=== PATIENT | female | born 1975 | race Two or more races ===

== ENCOUNTER 2020-08-30 16:21 | Outpatient (REF) | payer OTHER, SELFPAY ==
[2020-08-31 04:35] LABS: HBS Num1 17.74 mIU/mL (0-7.99); HBc Num1 0.13 S/CO (0.00-0.79); HBsAGNum1 0.28 S/CO (0.00-0.99); Hepatitis B Core Antibody Nonreactive (Nonreactive); Hepatitis B Surface Antigen Negative (Negative); ~Hepatitis B Surface Antibody REACTIVE (Nonreactive)
== END 2020-08-30 16:22 | disposition home or self-care (01) ==
LOC: HO.LAB 16:21
PROVIDERS: PCP Internal Medicine; Visit Provider Internal Medicine
DX: Z11.59 Encounter for screening for other viral diseases (principal)
CPT/HCPCS: 86704; 86706; 87340

== ENCOUNTER 2020-10-31 11:08 | Outpatient (REF) | payer OTHER, SELFPAY ==
[2020-10-31 12:09] LABS: MANUAL DIFF FLAG NO
[2020-10-31 12:14] LABS: Basophils Absolute Auto 0.1 X10*3/uL (0.0-0.2); Basophils Percent Auto 0.7 % (0-2); Eosinophils Absolute Auto 0.1 X10*3/uL (0.0-0.4); Eosinophils Percent Auto 1.7 % (0-4); Hematocrit 39.4 % (37-47); Hemoglobin 12.3 g/dl (12.0-16.0); Imm Gran Abs Auto 0.05 X10*3/uL (0.00-0.03); Imm Gran Pct Auto 0.7 % (0.0-0.4); Lymphocytes Absolute Auto 2.2 X10*3/uL (1.2-4.9); Lymphocytes Percent Auto 29.9 % (20-40); Mean Corpuscular HGB Conc 31.2 g/dl (31.0-35.0); Mean Corpuscular Hemoglobin 27.3 pg (27.0-33.0); Mean Corpuscular Volume 87.6 fL (80-98); Mean Platelet Volume 10.8 fL (9.4-12.3); Monocytes Absolute Auto 0.5 X10*3/uL (0.1-1.2); Neutrophils Absolute Auto 4.3 X10*3/uL (2.0-8.3); Platelet Count 344 X10*3/uL (160-400); Red Cell Distribution Width 13.6 % (11.0-16.0); White Blood Count 7.2 X10*3/uL (4.8-10.8)
[2020-10-31 12:21] LABS: Estimated Average Glucose 117 mg/dL; Hemoglobin A1c % 5.7 %
[2020-10-31 13:00] LABS: Alanine Aminotransferase 16 U/L (0-31); Albumin Level 3.9 g/dL (3.5-5.0); Alkaline Phosphatase 104 U/L (39-117); Anion Gap 12 (12-20); Aspartate Amino Transferase 19 U/L (5-31); Bilirubin Total 0.7 mg/dL (0.0-1.0); Blood Urea Nitrogen 17 mg/dL (9-16); Calcium 8.5 mg/dL (8.4-10.2); Carbon Dioxide 26 mmol/L (22-29); Chloride 106 mmol/L (96-108); Cholesterol 187 mg/dL; Estimated Glomerular Filt Rate > 60; Glucose Random 87 mg/dL (60-115); HDL Cholesterol 39 mg/dL; LDL Cholesterol Calculated 132 mg/dl; Sodium 140 mmol/L (135-145); Total Protein 6.9 g/dL (6.5-8.0); Triglycerides 80 mg/dL
[2020-10-31 13:25] LABS: Thyroid Stimulating Hormone 1.29 uIU/mL (0.32-4.0)
== END 2020-10-31 11:09 | disposition home or self-care (01) ==
LOC: HO.LAB 11:08
PROVIDERS: PCP Internal Medicine; Visit Provider Internal Medicine
DX: E66.01 Morbid (severe) obesity due to excess calories (principal); G43.109 Migraine with aura, not intractable, without status migrainosus; Z00.00 Encounter for general adult medical examination without abnormal findings; Z13.31 Encounter for screening for depression; Z68.42 Body mass index [BMI] 45.0-49.9, adult
CPT/HCPCS: 36415; 80053; 80061; 83036; 84443; 85025

== ENCOUNTER 2021-07-03 08:45 | Outpatient (REF) | payer OTHER, SELFPAY ==
--- NOTE | 2021-07-03 08:48 | EMG_ITS ---
This is a 46-year-old woman with a 2-year history of bilateral upper extremity pain, numbness, and tingling and the hand sometimes turning purple. She is on Topamax for migraines. PHYSICAL EXAMINATION: On examination, she is alert and oriented with normal intellectual functions. Cranial nerves II through XII are normal. Muscle tone and strength are normal in all 4 extremities. Deep tendon reflexes symmetrical. Plantar responses are flexor. IMPRESSION: Carpal tunnel syndrome. Nerve conduction EMG study: Moderate carpal tunnel syndrome on the right, and mild carpal tunnel syndrome on the left. Normal EMG of the right C5 through T1 innervated muscles. MD ADELE Marin/DENISE / [id number]
== END 2021-07-03 08:46 | disposition home or self-care (01) ==
LOC: HO.NEURO 08:45
PROVIDERS: Visit Provider Internal Medicine
DX: G56.03 Carpal tunnel syndrome, bilateral upper limbs (principal)
CPT/HCPCS: 95885; 95913

== ENCOUNTER 2021-08-03 09:06 | Outpatient (REF) | payer OTHER, SELFPAY ==
[2021-08-03 09:39] LABS: MANUAL DIFF FLAG NO
[2021-08-03 09:41] LABS: Basophils Absolute Auto 0.1 X10*3/uL (0.0-0.2); Basophils Percent Auto 0.9 % (0-2); Eosinophils Absolute Auto 0.1 X10*3/uL (0.0-0.4); Eosinophils Percent Auto 1.4 % (0-4); Hematocrit 40.5 % (37-47); Hemoglobin 12.6 g/dl (12.0-16.0); Imm Gran Abs Auto 0.08 X10*3/uL (0.00-0.03); Lymphocytes Absolute Auto 2.3 X10*3/uL (1.2-4.9); Mean Corpuscular HGB Conc 31.1 g/dl (31.0-35.0); Mean Corpuscular Hemoglobin 27.3 pg (27.0-33.0); Mean Corpuscular Volume 87.7 fL (80-98); Mean Platelet Volume 10.6 fL (9.4-12.3); Monocytes Absolute Auto 0.6 X10*3/uL (0.1-1.2); Monocytes Percent Auto 7.2 % (2-11); Neutrophils Absolute Auto 4.9 X10*3/uL (2.0-8.3); Neutrophils Percent Auto 60.5 % (45-73); Platelet Count 367 X10*3/uL (160-400); Red Blood Count 4.62 X10*6/uL (4.20-5.50); Red Cell Distribution Width 14.2 % (11.0-16.0); White Blood Count 8.1 X10*3/uL (4.8-10.8)
[2021-08-03 10:08] LABS: Alanine Aminotransferase 16 U/L (0-31); Alkaline Phosphatase 105 U/L (39-117); Anion Gap 12 (12-20); Aspartate Amino Transferase 20 U/L (5-31); Bilirubin Total 0.4 mg/dL (0.0-1.0); Blood Urea Nitrogen 12 mg/dL (9-16); Calcium 8.7 mg/dL (8.4-10.2); Carbon Dioxide 21 mmol/L (22-29); Chloride 111 mmol/L (96-108); Cholesterol 180 mg/dL; Estimated Glomerular Filt Rate > 60; Glucose Random 107 mg/dL (60-115); HDL Cholesterol 38 mg/dL; LDL Cholesterol Calculated 119 mg/dl; Potassium 4.1 mmol/L (3.3-5.1); Sodium 140 mmol/L (135-145); Total Protein 7.3 g/dL (6.5-8.0); Triglycerides 115 mg/dL
[2021-08-03 10:28] LABS: Thyroid Stimulating Hormone 1.17 uIU/mL (0.32-4.0)
== END 2021-08-03 09:07 | disposition home or self-care (01) ==
LOC: HO.LAB 09:06
PROVIDERS: PCP Internal Medicine; Visit Provider Internal Medicine
DX: Z00.01 Encounter for general adult medical examination with abnormal findings (principal); Z13.31 Encounter for screening for depression; G43.109 Migraine with aura, not intractable, without status migrainosus; G56.03 Carpal tunnel syndrome, bilateral upper limbs
CPT/HCPCS: 36415; 80053; 80061; 84443; 85025

== ENCOUNTER → 2021-08-27 13:53 | Outpatient (BNVA) | payer OTHER, SELFPAY | PROVIDERS: PCP Internal Medicine; Visit Provider Orthopaedic Surgery | DX: G56.03 Carpal tunnel syndrome, bilateral upper limbs (principal) | CPT/HCPCS: 99202 ==

== ENCOUNTER 2021-09-30 11:19 | Day surgery (SDC) | payer OTHER, SELFPAY ==
[2021-09-30 11:44] VITALS: BMI 42.0
[2021-09-30 11:50] VITALS: BP 116/57; PULSE 59; RESP 16; TEMP 36.4; O2SAT 97
--- NOTE | 2021-09-30 12:48 | MHC.SHP ---
Pre-Procedural Eval Section A Date of Service: 09/30/21 The patient is an INPATIENT: No Changes since office visit: No Cold of Flu in the past 2 weeks, No New Medical Problems, No Changes in Medication and No Patient answered all questions The History & Physical has been completed within 30 days and I have reviewed it.: Yes Section B Chief Complaint: Carpal Tunnel Syndrome Allergies: Allergies Allergy/AdvReac Type Severity Reaction Status Date / Time paclitaxel [From TAXOL] Allergy Severe Hives Verified 09/30/21 11:56 lactose [LACTOSE] Allergy Mild Diarrhea Verified 09/30/21 11:57 latex [LATEX] Allergy Mild Hives Verified 09/30/21 11:56 Plan I have reviewed the history and physical and performed a pertinent physical examination on my patient. No changes have occurred unless specified.
--- NOTE | 2021-09-30 12:48 | W.PM.OPN ---
Operative Note Operative Note Date of Service: 09/30/21 Narrative: Preop diagnosis: 1. LeftCarpal tunnel syndrome Postop diagnosis: same Procedure: 1. Left Carpal tunnel release Surgeon: Cinthia Fernando MD Anesthesia: local block using 1% lidocaine with epinephrine Findings: Thickened transverse carpal ligament. EBL: Less than 5 mL Specimens: None Complications: None Disposition: Brought to recovery room in stable condition Plan: Follow-up for 7-10 days for wound check and suture removal Indications: The patient is 46 years old, with left carpal tunnel syndrome that has been unresponsive to nonoperative management. The risks and benefits of operative treatment including but not limited to risk of damage to blood vessels, nerves, tendons, infection, persistent pain, persistent symptoms, or possible need for additional surgery were discussed with the patient and the patient wishes to proceed with surgery. Procedure: Once consent was obtained a local block was performed using a combination of 1% lidocaine with epinephrine. The patient was then brought back to the operating suite and placed on the operative table in supine position. A tourniquet was applied to the proximal aspect of the left upper extremity and the limb was prepped and draped in a standard surgical fashion. Once assured that we had a good block, a 1.5 cm longitudinal incision was made centered over the carpal tunnel. The incision was made through the skin to the subcutaneous tissues using a #15 blade. Dissection was made down to the level of the transverse carpal ligament with care being taken to protect the palmar cutaneous nerve. Once the transverse carpal ligament was clearly visualized, a longitudinal incision was made in the transverse carpal ligament 1st using a #15 blade, then using tenotomy scissors under direct visualization. Care was taken to look for and protect the motor branch of the median nerve when seen in this area. Once satisfied with our carpal tunnel release the wound was copiously irrigated with normal saline and hemostasis was obtained with a brief period of local pressure. The skin edges were reapproximated with some 5.0 nylon suture material and a sterile dressing was applied. The patient appears to have tolerated the procedure well and with no complications. All digits were well vascularized at the conclusion of the case.
[2021-09-30 13:56] VITALS: BP 111/46; PULSE 69; RESP 18; TEMP 36.6; O2SAT 99
== END 2021-09-30 14:09 | disposition home or self-care (01) ==
PROVIDERS: PCP Internal Medicine; Visit Provider Orthopaedic Surgery
PROC: (CPT 64721; principal; 2021-09-30 12:30)
DX: G56.02 Carpal tunnel syndrome, left upper limb (principal); Z88.8 Allergy status to other drugs, medicaments and biological substances; Z91.040 Latex allergy status
CPT/HCPCS: 64721

== ENCOUNTER → 2021-10-16 12:44 | Outpatient (BNVA) | payer OTHER, SELFPAY | PROVIDERS: PCP Internal Medicine; Visit Provider Orthopaedic Surgery | DX: G56.03 Carpal tunnel syndrome, bilateral upper limbs (principal) | CPT/HCPCS: 99212 ==

== ENCOUNTER 2021-11-25 10:04 | Day surgery (SDC) | payer OTHER, SELFPAY ==
[2021-11-25 10:18] VITALS: BP 125/60; PULSE 67; RESP 16; TEMP 36.8; O2SAT 95
[2021-11-25 10:19] VITALS: BMI 42.0
--- NOTE | 2021-11-25 11:54 | MHC.SHP ---
Pre-Procedural Eval Section A Date of Service: 11/25/21 The patient is an INPATIENT: No Changes since office visit: No Cold of Flu in the past 2 weeks, No New Medical Problems, No Changes in Medication and No Patient answered all questions The History & Physical has been completed within 30 days and I have reviewed it.: Yes Section B Chief Complaint: carpal tunnel Allergies: Allergies Allergy/AdvReac Type Severity Reaction Status Date / Time paclitaxel [From TAXOL] Allergy Severe Hives Verified 11/18/21 10:19 lactose [LACTOSE] Allergy Mild Diarrhea Verified 11/18/21 10:19 latex [LATEX] Allergy Mild Hives Verified 11/18/21 10:19 Plan I have reviewed the history and physical and performed a pertinent physical examination on my patient. No changes have occurred unless specified.
--- NOTE | 2021-11-25 11:55 | W.PM.OPN ---
Operative Note Operative Note Date of Service: 11/25/21 Narrative: Preop diagnosis: 1. Right Carpal tunnel syndrome Postop diagnosis: same Procedure: 1. right Carpal tunnel release Surgeon: Cinthia Fernando MD Anesthesia: local block using 1% lidocaine with epinephrine Findings: Thickened transverse carpal ligament. EBL: Less than 5 mL Specimens: None Complications: None Disposition: Brought to recovery room in stable condition Plan: Follow-up for 10-14 days for wound check and suture removal Indications: The patient is 46 years old, with right carpal tunnel syndrome that has been unresponsive to nonoperative management. The risks and benefits of operative treatment including but not limited to risk of damage to blood vessels, nerves, tendons, infection, persistent pain, persistent symptoms, or possible need for additional surgery were discussed with the patient and the patient wishes to proceed with surgery. Procedure: Once consent was obtained a local block was performed using a combination of 1% lidocaine with epinephrine. The patient was then brought back to the operating suite and placed on the operative table in supine position. A tourniquet was applied to the proximal aspect of the right upper extremity and the limb was prepped and draped in a standard surgical fashion. Once assured that we had a good block, a 1.5 cm longitudinal incision was made centered over the carpal tunnel. The incision was made through the skin to the subcutaneous tissues using a #15 blade. Dissection was made down to the level of the transverse carpal ligament with care being taken to protect the palmar cutaneous nerve. Once the transverse carpal ligament was clearly visualized, a longitudinal incision was made in the transverse carpal ligament 1st using a #15 blade, then using tenotomy scissors under direct visualization. Care was taken to look for and protect the motor branch of the median nerve when seen in this area. Once satisfied with our carpal tunnel release the wound was copiously irrigated with normal saline and hemostasis was obtained with a brief period of local pressure. The skin edges were reapproximated with some 5.0 nylon suture material and a sterile dressing was applied. The patient appears to have tolerated the procedure well and with no complications. All digits were well vascularized at the conclusion of the case.
[2021-11-25 12:13] VITALS: BP 113/63; PULSE 60; RESP 16; TEMP 36.9; O2SAT 94
== END 2021-11-25 12:28 | disposition home or self-care (01) ==
PROVIDERS: PCP Internal Medicine; Visit Provider Orthopaedic Surgery
PROC: (CPT 64721; principal; 2021-11-25 11:20)
DX: G56.01 Carpal tunnel syndrome, right upper limb (principal); Z88.8 Allergy status to other drugs, medicaments and biological substances; Z91.040 Latex allergy status
CPT/HCPCS: 64721

== ENCOUNTER → 2021-12-11 14:24 | Outpatient (BNVA) | payer OTHER, SELFPAY | PROVIDERS: PCP Internal Medicine; Visit Provider Physician Assistant | DX: Z48.1 Encounter for planned postprocedural wound closure (principal); Z98.890 Other specified postprocedural states | CPT/HCPCS: 99212 ==

== ENCOUNTER 2022-05-27 16:26 | Outpatient (REF) | payer OTHER, SELFPAY ==
--- NOTE | ~2022-05-27 | MM_ITS ---
EXAMINATION: MM SCREENING DIGITAL BREAST TOMOSYNTHESIS, BILATERAL CLINICAL INFORMATION: Screening. Asymptomatic. The lifetime risk of breast cancer based on the Tyrer-Cuzick Model is 10.1%. COMPARISON: Mammography: July 21, 2020 and studies dating back to March 11, 2017 TECHNIQUE: Digital breast tomosynthesis is performed in both the craniocaudal and mediolateral oblique views along with computer-aided detection (CAD). Synthesized 2D images are generated from the tomosynthesis. FINDINGS: There are scattered areas of fibroglandular density (ACR BI-RADS breast composition Category b). There are no significant masses, abnormal calcifications, or other abnormalities. MM/MM tomosynthesis screening BI IMPRESSION: There are no significant changes from prior study. ASSESSMENT: BI-RADS 1: Negative RECOMMENDATION: Routine annual mammography screening. This patient's information was entered into a reminder system with a target due date for their next mammogram.
== END 2022-05-27 16:27 | disposition home or self-care (01) ==
LOC: HO.MAMMO 16:26
PROVIDERS: Visit Provider Internal Medicine
DX: Z12.31 Encounter for screening mammogram for malignant neoplasm of breast (principal)
CPT/HCPCS: 77063; 77067

== ENCOUNTER 2022-12-17 08:14 | Outpatient (REF) | payer OTHER, SELFPAY ==
[2022-12-17 08:29] LABS: MANUAL DIFF FLAG NO
[2022-12-17 08:59] LABS: Basophils Percent Auto 0.7 % (0-2); Eosinophils Percent Auto 0.2 % (0-4); Hematocrit 39.9 % (37.0-47.0); Hemoglobin 12.7 g/dl (12.0-16.0); Imm Gran Abs Auto 0.04 X10*3/uL (0.00-0.03); Imm Gran Pct Auto 0.7 % (0.0-0.4); Lymphocytes Percent Auto 17.4 % (20-40); Mean Corpuscular HGB Conc 31.8 g/dl (31.0-35.0); Mean Corpuscular Hemoglobin 27.1 pg (27.0-33.0); Mean Corpuscular Volume 85.1 fL (80.0-98.0); Mean Platelet Volume 10.5 fL (9.4-12.3); Monocytes Absolute Auto 0.4 X10*3/uL (0.1-1.2); Monocytes Percent Auto 6.8 % (2-11); Neutrophils Absolute Auto 4.4 x10*3/uL (2.0-8.3); Neutrophils Percent Auto 74.2 % (45-73); Platelet Count 333 X10*3/uL (160-400); Red Blood Count 4.69 X10*6/uL (4.20-5.50); Red Cell Distribution Width 14.5 % (11.0-16.0); White Blood Count 5.9 X10*3/uL (4.8-10.8)
[2022-12-17 09:32] LABS: Alanine Aminotransferase 15 U/L (0-31); Albumin Level 4.1 g/dL (3.5-5.0); Alkaline Phosphatase 105 U/L (39-117); Anion Gap 17 (12-20); Aspartate Amino Transferase 17 U/L (5-31); Bilirubin Total 0.6 mg/dL (0.0-1.0); Blood Urea Nitrogen 21 mg/dL (9-16); Calcium 9.1 mg/dL (8.4-10.2); Carbon Dioxide 22 mmol/L (22-29); Chloride 106 mmol/L (96-108); Cholesterol 193 mg/dL; Estimated Glomerular Filt Rate > 60; Glucose Random 102 mg/dL (60-115); HDL Cholesterol 36 mg/dL; LDL Cholesterol Calculated 136 mg/dl; Potassium 3.9 mmol/L (3.3-5.1); Sodium 141 mmol/L (135-145); Total Protein 7.1 g/dL (6.5-8.0); Triglycerides 105 mg/dL
[2022-12-17 09:56] LABS: Thyroid Stimulating Hormone 1.82 uIU/mL (0.32-4.0); Vitamin B12 750 pg/mL (200-900)
== END 2022-12-17 08:15 | disposition home or self-care (01) ==
LOC: HO.LAB 08:14
PROVIDERS: PCP Internal Medicine; Visit Provider Internal Medicine
DX: F32.5 Major depressive disorder, single episode, in full remission (principal); G62.9 Polyneuropathy, unspecified; I10 Essential (primary) hypertension; Z85.40 Personal history of malignant neoplasm of unspecified female genital organ
CPT/HCPCS: 36415; 80053; 80061; 82607; 84443; 85025

== ENCOUNTER 2022-12-19 16:42 | Outpatient (REF) | payer OTHER, SELFPAY ==
--- NOTE | ~2022-12-19 | XR_ITS ---
EXAMINATION: XR ELBOW, RIGHT CLINICAL INFORMATION: Pain COMPARISON: None TECHNIQUE: AP, lateral, and oblique views of the right elbow. FINDINGS: No fracture or dislocation. No joint effusion. No appreciable degenerative changes. No focal soft tissue swelling. No radiopaque foreign body. XR/XR elbow RT min 3V IMPRESSION: Unremarkable radiographs of the right elbow.
== END 2022-12-19 16:43 | disposition home or self-care (01) ==
LOC: HO.HOSX 16:42
PROVIDERS: Visit Provider Physician Assistant
DX: S52.121A Displaced fracture of head of right radius, initial encounter for closed fracture (principal)
CPT/HCPCS: 73080; 99202

== ENCOUNTER → 2023-01-15 08:56 | Outpatient (BNVA) | payer OTHER, SELFPAY | PROVIDERS: PCP Internal Medicine; Visit Provider Physician Assistant | DX: S52.121D Displaced fracture of head of right radius, subsequent encounter for closed fracture with routine healing (principal) | CPT/HCPCS: 99212 ==

== ENCOUNTER 2023-01-16 15:55 | Outpatient (REF) | payer OTHER, SELFPAY ==
--- NOTE | ~2023-01-16 | XR_ITS ---
EXAMINATION: XR ELBOW, RIGHT CLINICAL INFORMATION: Pain COMPARISON: None TECHNIQUE: AP, lateral, and oblique views of the right elbow. FINDINGS: There is a possible nondisplaced fracture of the radial head. No definite effusion. XR/XR elbow RT min 3V IMPRESSION: There is a possible nondisplaced fracture of the radial head. No definite effusion.
== END 2023-01-16 15:56 | disposition home or self-care (01) ==
LOC: HO.HOSX 15:55
PROVIDERS: Visit Provider Physician Assistant
DX: M25.521 Pain in right elbow (principal)
CPT/HCPCS: 73080

== ENCOUNTER 2023-02-13 08:34 | Outpatient (REF) | payer OTHER, SELFPAY ==
--- NOTE | ~2023-02-13 | XR_ITS ---
EXAMINATION: XR ELBOW, RIGHT CLINICAL INFORMATION: Pain. COMPARISON: Radiographs dated 01/15/2023. TECHNIQUE: AP, lateral, and oblique views of the right elbow. FINDINGS: The bones and soft tissues are normal. No fracture or joint effusion. Alignment is anatomic. Joint spaces are maintained. XR/XR elbow RT min 3V IMPRESSION: Normal right elbow. No definite fracture is presently appreciated.
== END 2023-02-13 08:35 | disposition home or self-care (01) ==
LOC: HO.HOSX 08:34
PROVIDERS: Visit Provider Physician Assistant
DX: S52.121D Displaced fracture of head of right radius, subsequent encounter for closed fracture with routine healing (principal); X58.XXXD Exposure to other specified factors, subsequent encounter
CPT/HCPCS: 73080; 99212

== ENCOUNTER 2023-03-13 07:48 | Outpatient (REF) | payer OTHER, SELFPAY ==
--- NOTE | ~2023-03-13 | XR_ITS ---
EXAMINATION: XR ELBOW, RIGHT CLINICAL INFORMATION: Pain COMPARISON: None available. TECHNIQUE: AP, lateral, and oblique views of the right elbow. FINDINGS: The bones and soft tissues are normal. No fracture or joint effusion. Alignment is anatomic. Joint spaces are maintained. XR/XR elbow RT min 3V IMPRESSION: Unremarkable right elbow
== END 2023-03-13 07:49 | disposition home or self-care (01) ==
LOC: HO.HOSX 07:48
PROVIDERS: Visit Provider Physician Assistant
DX: S52.121A Displaced fracture of head of right radius, initial encounter for closed fracture (principal)
CPT/HCPCS: 73080; 99212

== ENCOUNTER 2023-04-16 10:00 | Outpatient (RCR) | payer OTHER, SELFPAY ==
--- NOTE | 2023-01-14 14:01 | MHC.OT.EP ---
[address] [phone] Occupational Therapy Plan of Care Patient Name: Margy Davila Date of Evaluation: 01/14/23 Diagnosis: Displaced fracture of head of right radius Pain Location: Pain right elbow 7/10 (w/ ibuprofen) Worst: 10/10 Pain Score: 7 Pain Scale Used: Aggravating Factors: Movement, wrist extension Alleviating Factors: Ibuprofen, elevation Assessment: Pt is a 47 y/o female approx 5 weeks s/p right radial head fracture. Pt. reports 7/10 pain in right medial elbow, wearing sling at all times except for hygiene. Pt presents with stiffness in right shoulder and elbow, pain with elbow extension, and difficulty using R hand for functional tasks. 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 Grounds Keeper strength on the R is 20#, compared to 40# on the left. A 70.5% limitation is reported per the Quick DASH assessment. Pt. was educated in role of OT, POC, and goals. We discussed removing the sling several times a day to work on gentle ROM of shoulder, elbow, and wrist. She has a follow up tomorrow with ortho. Margy would benefit from skilled OT services to address noted barriers and assist in return to PLOF. Frequency and Duration: The patient will be seen 2x/wk for 4 weeks Short Term Goals: Decrease pain in right elbow <5/10 IND with HEP Improve L elbow extension by 10 degrees IND with thermal modalities for pain management Chcf Goals: Pain free with BADL's/IADL's Elbow and shoudler ROM WFL's IND with progression of HEP Improve R gross grasp >35# Quick DASH <25% Treatment Plan: Therapeutic Exercise Therapeutic Activity Home Exercise Program Patient Education MHP Soft Tissue Mobilization Kinesiotaping Electronically Signed By: Meka Rhodes, OTR/L Please Sign and return to therapist. Thank you once again for your referral.
--- NOTE | 2023-02-12 13:55 | MHC.OT.OP ---
[address] [phone] F: [phone] Occupational Therapy Progress Note Patient Name: Margy Davila Diagnosis: Displaced fracture of head of right radius Date of Evaluation: 01/14/23 Treatments to Date: 8 Cancellations to Date: 1 No Shows to Date: 1 Subjective: I've been walking the dog so it's been helping keep my arm straight. I had to take ibuprofen last night for the pain. I have a lot of pain Pain Score: 5 Pain Location: Right elbow Objective Measures: Right elbow 10/145 Gross grasp R: 25# L: 40# Status: Progressing Assessment: Pt is 9 weeks post injury and has follow up with ortho tomorrow. Margy is progressing well. 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 Gross grasp improved to 25# (previously 15#) and reports using her R UE more for functional tasks. She states her baseline pain is achy in the elbow staying around 3/10, can reach 7/10 on a bad day. Elbow ROM is improving; 10 degrees extension and 145 elbow flexion. Pt would benefit from continued skilled OT w/ focus on obtaining full elbow extension and improving strength to be able to return to work. Short Term Goals: Decrease pain in right elbow <5/10 - MET IND with HEP - MET Improve L elbow extension by 10 degrees - MET IND with thermal modalities for pain management - MET Tongue Stitcher Goals: Pain free with BADL's/IADL's Elbow and shoudler ROM WFL's IND with progression of HEP Improve R gross grasp >35# Quick DASH <25% Frequency and Duration: The patient will be seen 2x/wk for 3 weeks or per new MD orders Treatment Plan: Therapeutic Exercise Therapeutic Activity Home Exercise Program Patient Education MHP Cold Packs Joint Mobilization Soft Tissue Mobilization Kinesiotaping Electronically Signed By: Meka Rhodes, OTR/L Reviewed/agree with student documentation: N/A Therapist:
--- NOTE | 2023-04-16 10:19 | MHC.OT.DC ---
[address] [phone] F: [phone] Occupational Therapy Discharge Note Patient Name: Margy Davila Provider: Madyson Dotson Diagnosis: Displaced fracture of head of right radius Date of Surgery: Date of Evaluation: 01/14/23 Date of Discharge: 04/16/23 Treatments to Date: 21 Cancellations to Date: 1 No Shows to Date: 1 Discharge Status: Achieved Goals Improved Function Independent with HEP Discharge Summary: Margy has progressed well in OT and met all LTG's set on admission. 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 Pt is IND with progression of HEP and is in agreement with discharge to home program. Electronically Signed By: Meka Rhodes MS OTR/L Reviewed/agree with student documentation: N/A Therapist: Please Sign and return to therapist, thank you for your referral.
== END 2023-04-16 10:19 | disposition home or self-care (01) ==
LOC: HO.OT 10:00
PROVIDERS: PCP Internal Medicine; Visit Provider Physician Assistant
DX: S52.121A Displaced fracture of head of right radius, initial encounter for closed fracture (principal)
CPT/HCPCS: 97110; 97140; 97165

== ENCOUNTER → 2023-04-24 15:24 | Outpatient (BNVA) | payer OTHER, SELFPAY | PROVIDERS: PCP Internal Medicine; Visit Provider Physician Assistant | DX: S52.121D Displaced fracture of head of right radius, subsequent encounter for closed fracture with routine healing (principal) | CPT/HCPCS: 99212 ==

== ENCOUNTER 2023-05-16 09:04 | Outpatient (REF) | payer OTHER, SELFPAY ==
[2023-05-16 11:40] LABS: Alanine Aminotransferase 22 U/L (0-31); Alkaline Phosphatase 99 U/L (39-117); Anion Gap 15 (12-20); Aspartate Amino Transferase 24 U/L (5-31); Bilirubin Total 0.6 mg/dL (0.0-1.0); Blood Urea Nitrogen 20 mg/dL (9-16); Calcium 9.1 mg/dL (8.4-10.2); Carbon Dioxide 22 mmol/L (22-29); Chloride 109 mmol/L (96-108); Cholesterol 125 mg/dL; Estimated Glomerular Filt Rate > 60; Glucose Random 102 mg/dL (60-115); HDL Cholesterol 35 mg/dL; LDL Cholesterol Calculated 77 mg/dl; Potassium 3.6 mmol/L (3.3-5.1); Sodium 142 mmol/L (135-145); Total Protein 7.2 g/dL (6.5-8.0); Triglycerides 67 mg/dL
[2023-05-16 11:47] LABS: Thyroid Stimulating Hormone 1.53 uIU/mL (0.32-4.0)
== END 2023-05-16 09:05 | disposition home or self-care (01) ==
LOC: HO.LAB 09:04
PROVIDERS: PCP Internal Medicine; Visit Provider Internal Medicine
DX: E78.00 Pure hypercholesterolemia, unspecified (principal); F32.5 Major depressive disorder, single episode, in full remission; I10 Essential (primary) hypertension
CPT/HCPCS: 36415; 80053; 80061; 83036; 84443; 85025

== ENCOUNTER 2023-05-18 16:39 | Outpatient (REF) | payer OTHER, SELFPAY ==
[2023-05-21 03:09] LABS: TS Negative Control Passed; TS Panel A 0; TS Panel B 2; TS Positive Control Passed; TSpotTB Negative (Negative)
== END 2023-05-18 16:40 | disposition home or self-care (01) ==
LOC: HO.LAB 16:39
PROVIDERS: PCP Internal Medicine; Visit Provider Internal Medicine
DX: Z00.00 Encounter for general adult medical examination without abnormal findings (principal); E78.00 Pure hypercholesterolemia, unspecified; F32.5 Major depressive disorder, single episode, in full remission; I10 Essential (primary) hypertension
CPT/HCPCS: 36415; 86481

== ENCOUNTER 2023-07-25 09:44 | Outpatient (REF) | payer OTHER, SELFPAY | END 2023-07-25 09:45 | disposition home or self-care (01) | LOC: HO.MAMMO 09:44 | PROVIDERS: PCP Internal Medicine; Visit Provider Internal Medicine | DX: Z12.31 Encounter for screening mammogram for malignant neoplasm of breast (principal) | CPT/HCPCS: 77063; 77067 ==

== ENCOUNTER → 2023-07-25 10:30 | Outpatient (BNV) | payer OTHER, SELFPAY | PROVIDERS: PCP Internal Medicine; Visit Provider Radiology Diagnostic Radiology | DX: Z12.31 Encounter for screening mammogram for malignant neoplasm of breast (principal) | CPT/HCPCS: 77063; 77067 ==

== ENCOUNTER 2024-06-16 06:18 | Outpatient (REF) | payer OTHER, SELFPAY ==
[2024-06-16 06:37] LABS: MANUAL DIFF FLAG NO
[2024-06-16 07:06] LABS: Basophils Absolute Auto 0.1 X10*3/uL (0.0-0.2); Eosinophils Percent Auto 0.1 % (0-4); Hematocrit 40.7 % (37.0-47.0); Imm Gran Abs Auto 0.04 X10*3/uL (0.00-0.03); Imm Gran Pct Auto 0.6 % (0.0-0.4); Lymphocytes Absolute Auto 1.5 X10*3/uL (1.2-4.9); Lymphocytes Percent Auto 21.5 % (20-40); Mean Corpuscular HGB Conc 31.9 g/dl (31.0-35.0); Mean Corpuscular Hemoglobin 27.5 pg (27.0-33.0); Mean Corpuscular Volume 86.2 fL (80.0-98.0); Mean Platelet Volume 10.6 fL (9.4-12.3); Monocytes Absolute Auto 0.4 X10*3/uL (0.1-1.2); Monocytes Percent Auto 6.3 % (2-11); Neutrophils Absolute Auto 4.9 x10*3/uL (2.0-8.3); Neutrophils Percent Auto 70.5 % (45-73); Platelet Count 393 X10*3/uL (160-400); Red Blood Count 4.72 X10*6/uL (4.20-5.50); Red Cell Distribution Width 14.6 % (11.0-16.0); White Blood Count 6.9 X10*3/uL (4.8-10.8)
[2024-06-16 07:44] LABS: Alanine Aminotransferase 16 U/L (0-31); Albumin Level 4.1 g/dL (3.5-5.0); Alkaline Phosphatase 116 U/L (39-117); Anion Gap 11 (12-20); Aspartate Amino Transferase 18 U/L (5-31); Bilirubin Total 0.5 mg/dL (0.0-1.0); Blood Urea Nitrogen 21 mg/dL (9-16); Calcium 9.1 mg/dL (8.4-10.2); Carbon Dioxide 26 mmol/L (22-29); Chloride 107 mmol/L (96-108); Cholesterol 130 mg/dL (<200); Estimated Glomerular Filt Rate 58; Glucose Random 121 mg/dL (60-115); HDL Cholesterol 39 mg/dL (>40); LDL Cholesterol Calculated 76 mg/dL (<100); Potassium 3.6 mmol/L (3.3-5.1); Sodium 140 mmol/L (135-145); Total Protein 7.6 g/dL (6.5-8.0); Triglycerides 76 mg/dL (<150)
[2024-06-17 09:33] LABS: Rubeola IgG (Measles) >300.00 AU/mL
[2024-06-17 17:37] LABS: Rubella IgG Antibody 9.86 Index
[2024-06-18 21:48] LABS: TS Negative Control Passed; TS Panel A 0; TS Panel B 0; TS Positive Control Passed; TSpotTB Negative (Negative)
== END 2024-06-16 06:19 | disposition home or self-care (01) ==
LOC: HO.LAB 06:18
PROVIDERS: PCP Internal Medicine; Visit Provider Internal Medicine
DX: Z00.00 Encounter for general adult medical examination without abnormal findings (principal); E78.00 Pure hypercholesterolemia, unspecified; F32.5 Major depressive disorder, single episode, in full remission; G44.209 Tension-type headache, unspecified, not intractable; G47.62 Sleep related leg cramps; Z85.40 Personal history of malignant neoplasm of unspecified female genital organ
CPT/HCPCS: 36415; 80053; 80061; 85025; 86481; 86735; 86762; 86765

== ENCOUNTER 2024-07-30 09:49 | Outpatient (REF) | payer OTHER, SELFPAY ==
--- NOTE | ~2024-07-30 | MM_ITS ---
EXAMINATION: MM SCREENING DIGITAL BREAST TOMOSYNTHESIS, BILATERAL CLINICAL INFORMATION: Screening. Asymptomatic. COMPARISON: Mammography: Comparison is made with available priors TECHNIQUE: Digital breast mammography with tomosynthesis is performed in both the craniocaudal and mediolateral oblique views along with computer-aided detection (CAD). FINDINGS: There are scattered areas of fibroglandular density (ACR BI-RADS breast composition Category b). There are no significant masses, abnormal calcifications, or other abnormalities. MM/MM tomosynthesis screening BI IMPRESSION: No mammographic evidence of malignancy. ASSESSMENT: BI-RADS BI-RADS 1 - Negative RECOMMENDATION: Routine annual mammography screening. 1 year F/U This examination should not preclude the clinical evaluation of a suspicious palpable abnormality. This patient's information was entered into a reminder system with a target due date for their next mammogram. Electronically signed by: Audrey Richey DO 08/11/2024 11:09 AM EDT
== END 2024-07-30 09:50 | disposition home or self-care (01) ==
LOC: HO.MAMMO 09:49
PROVIDERS: PCP Internal Medicine; Visit Provider Internal Medicine
DX: Z12.31 Encounter for screening mammogram for malignant neoplasm of breast (principal)
CPT/HCPCS: 77063; 77067

== ENCOUNTER → 2024-07-30 10:00 | Outpatient (BNV) | payer OTHER, SELFPAY | PROVIDERS: PCP Internal Medicine; Visit Provider Internal Medicine | DX: Z12.31 Encounter for screening mammogram for malignant neoplasm of breast (principal) | CPT/HCPCS: 77063; 77067 ==

== ENCOUNTER 2025-01-06 08:22 | Day surgery (SDC) | payer OTHER, SELFPAY ==
[2025-01-04 14:18] VITALS: BMI 46.5
[2025-01-06 09:16] VITALS: BMI 46.1
[2025-01-06 09:18] VITALS: BP 130/69; PULSE 60; RESP 18; TEMP 36.2; O2SAT 98
--- NOTE | 2025-01-06 09:27 | P.CONAN_ITS ---
Documented by User: Samara Hayden NP 01/05/25 09:13 HPI - Anesthesia Eval Consult details Narrative: 49yo F for Colonoscopy BMI 46 PMFSH Active Problems Active Problems: All Active Problems Fracture of radial head, right, closed (Acute) S/P carpal tunnel release (Acute) Carpal tunnel syndrome of left wrist (Acute) Carpal tunnel syndrome of right wrist (Acute) Past Medical History Medical History (Updated 01/04/25 @ 14:18 by Arlette Garcia RN) Endometrial carcinoma Migraines Anxiety and depression Renal calculi Asthma Elevated cholesterol HTN (hypertension) Surgical History Surgical History (Updated 01/04/25 @ 14:18 by Arlette Garcia RN) H/O colonoscopy History of tonsillectomy and adenoidectomy Hx of cholecystectomy Hx of hysterectomy Social History Social History (Updated 01/04/25 @ 14:18 by Arlette Garcia RN) Patient Tobacco Use Status: Never used Tobacco Use of substances other than those prescribed or required for medical reasons: No Are you DNR?: No Advance Directives: No Advance Directives Information Provided: Yes Current occupational status: employed 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 Meds Allergies Allergy/AdvReac Type Severity Reaction Status Date / Time paclitaxel [From TAXOL] Allergy Severe Hives Verified 01/06/25 09:15 lactose [LACTOSE] Allergy Mild Diarrhea Verified 01/06/25 09:15 latex [LATEX] Allergy Mild Hives Verified 01/06/25 09:15 Home Medications ?Medication ?Instructions ?Recorded ?Confirmed ?Last Taken ?Type naproxen 250 mg tablet 250 mg PO BID PRN Pain 08/27/21 01/04/25 Unknown History topiramate 15 mg sprinkle capsule 75 mg PO DAILY 08/27/21 01/04/25 Unknown History fluticasone propionate 50 1 spray intranasal DAILY 12/19/22 01/04/25 Unknown History mcg/actuation nasal spray,suspension losartan 50 mg-hydrochlorothiazide 1 tab PO DAILY 12/19/22 01/04/25 Unknown History 12.5 mg tablet albuterol sulfate 90 mcg/actuation 2 puff inhalation QID PRN asthma 01/04/25 01/04/25 Unknown History aerosol inhaler (Ventolin HFA) atorvastatin 10 mg tablet 10 mg PO DAILY 01/04/25 01/04/25 Unknown History fluticasone furoate 200 1 inh inhalation DAILY 01/04/25 01/04/25 Unknown History mcg/actuation blister powder for inhalation (Arnuity Ellipta) ketotifen fumarate 0.025 % (0.035 2 drp ophthalmic (eye) DAILY 01/04/25 01/04/25 Unknown History %) eye drops sertraline 100 mg tablet 100 mg PO QAM 01/04/25 01/04/25 Unknown History triamcinolone acetonide 0.5 % 1 appl topical BID 01/04/25 01/04/25 Unknown History topical cream Exam Height,Weight and Vital Signs: Height 5 ft 2 in Weight 115.212 kg Assessment and Plan Assessment Anesthesia Assessment: Chart Reviewed Documented by User: Evelyn Bernal DO 01/06/25 09:28 [facility] Past Medical History Medical History (Updated 01/04/25 @ 14:18 by Arlette Garcia RN) Endometrial carcinoma Migraines Anxiety and depression Renal calculi Asthma Elevated cholesterol HTN (hypertension) Family History Family history of problems with anesthesia: No Surgical History Surgical History (Updated 01/04/25 @ 14:18 by Arlette Garcia RN) H/O colonoscopy History of tonsillectomy and adenoidectomy Hx of cholecystectomy Hx of hysterectomy History of Problems with Anesthesia: No Social History Social History (Updated 01/04/25 @ 14:18 by Arlette Garcia RN) Patient Tobacco Use Status: Never used Tobacco Use of substances other than those prescribed or required for medical reasons: No Are you DNR?: No Advance Directives: No Advance Directives Information Provided: Yes Current occupational status: employed 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 Meds Allergies Allergy/AdvReac Type Severity Reaction Status Date / Time paclitaxel [From TAXOL] Allergy Severe Hives Verified 01/06/25 09:15 lactose [LACTOSE] Allergy Mild Diarrhea Verified 01/06/25 09:15 latex [LATEX] Allergy Mild Hives Verified 01/06/25 09:15 Home Medications ?Medication ?Instructions ?Recorded ?Confirmed ?Last Taken ?Type naproxen 250 mg tablet 250 mg PO BID PRN Pain 08/27/21 01/04/25 Unknown History topiramate 15 mg sprinkle capsule 75 mg PO DAILY 08/27/21 01/04/25 Unknown History fluticasone propionate 50 1 spray intranasal DAILY 12/19/22 01/04/25 Unknown History mcg/actuation nasal spray,suspension losartan 50 mg-hydrochlorothiazide 1 tab PO DAILY 12/19/22 01/04/25 Unknown History 12.5 mg tablet albuterol sulfate 90 mcg/actuation 2 puff inhalation QID PRN asthma 01/04/25 01/04/25 Unknown History aerosol inhaler (Ventolin HFA) atorvastatin 10 mg tablet 10 mg PO DAILY 01/04/25 01/04/25 Unknown History fluticasone furoate 200 1 inh inhalation DAILY 01/04/25 01/04/25 Unknown History mcg/actuation blister powder for inhalation (Arnuity Ellipta) ketotifen fumarate 0.025 % (0.035 2 drp ophthalmic (eye) DAILY 01/04/25 01/04/25 Unknown History %) eye drops sertraline 100 mg tablet 100 mg PO QAM 01/04/25 01/04/25 Unknown History triamcinolone acetonide 0.5 % 1 appl topical BID 01/04/25 01/04/25 Unknown His tory topical cream Exam Exam Date and Time: 01/06/25924 Airway Mallampati Class: II TM Dist: >3cm Neck ROM: Full Loose/Missing/Broken Teeth: No (patient denies any loose or broken teeth) Heart: S1S2 Lungs: CTAB Assessment and Plan Assessment Anesthesia Assessment: Anesthesia Plan Discussed and Chart Reviewed Final Anesthetic Review Family History of Problems with Anesthesia: No History of Problems with Anesthesia: No NPO: Yes ASA Class: III Final Preanesthetic Review: No Changes in Pt Med Stat, Meds/Allgs Chart Reviewed, Consent Obtained/Reviewed and Anes Risks/Benef Reviewed Patient Risk: Intermediate Procedure Risk: Low Anesthetic Plan Anesthetic Plan: MAC: and Agree w/ Assess. and Plan Disposition: Standard PACU
[2025-01-06] MEDS: Lactated Ringers 1,000 ML 100 ML IVCONT (09:28)
[2025-01-06 10:29] VITALS: BP 102/61; PULSE 56; RESP 20; TEMP 36.9; O2SAT 97
--- NOTE | 2025-01-06 10:29 | P.BOP_ITS ---
Brief Operative Note Date of Service: 01/06/25 Pre-op diagnosis: Screening, diarrhea Post-op diagnosis: other (Colon polyp, R/O microscopic colitis) Procedure: Colonoscopy to the cecum and TI with biopsies, and bx/removal of polyp Surgeon: Fran Abbott MD Anesthesia: MAC Was an Farm Implement Mechanic used for this Procedure?: No Estimated blood loss (mL): 2.0 Pathology: other (A. Ascending colon B. Descending colon C. Rectal polyp) Condition: stable Disposition: PACU
[2025-01-06 10:47] VITALS: BP 121/70; PULSE 51; RESP 18; TEMP 36.7; O2SAT 97
--- NOTE | 2025-01-06 21:19 | OP_ITS ---
DATE OF SERVICE: 01/06/2025 SURGEON: Fran Abbott MD INDICATIONS: Patient presents for evaluation of colorectal cancer screening as well as diarrhea. Full consent is obtained from her for this, including risks of bleeding and perforation. PREOPERATIVE DIAGNOSIS: POSTOPERATIVE DIAGNOSIS: PROCEDURE PERFORMED: Colonoscopy to cecum and terminal ileum with biopsies and biopsy and removal of polyp. ESTIMATED BLOOD LOSS: COMPLICATIONS: ANESTHESIA: Monitored anesthesia care. ASSISTANTS: SPECIMENS: PREOPERATIVE DIAGNOSES: Colorectal cancer screening and diarrhea. POSTOPERATIVE DIAGNOSES: Colorectal cancer screening, diarrhea, rectal polyp, rule out microscopic colitis, mild diverticulosis, and internal hemorrhoids. DESCRIPTION OF PROCEDURE: The patient was placed in left lateral decubitus position. The digital rectal exam revealed no abnormalities. The Olympus video pediatric colonoscope was entered into the rectum and advanced easily to cecum. Once in the cecum, I did identify normal-appearing cecal pouch with appendiceal orifice and normal-appearing ileocecal valve. The terminal ileum was cannulated and appeared normal. Scope was withdrawn back in the colon. The entire cecum and ileocecal valve appeared normal. The scope was then slowly withdrawn assessing all mucosal surfaces carefully. Preparation was excellent. I did not visualize any sign of colitis nor angiodysplasia. Random biopsies were obtained in the ascending and descending colon. There were occasional diverticula in the sigmoid colon. The only polyp I visualized was in the rectum. This was approximately a 4 mm in size and removed completely by cold biopsy forceps. In the rectum, scope was retroflexed, visualizing internal hemorrhoids as well. Scope was straightened and withdrawn from patient. She tolerated the procedure well and was returned to the recovery area in stable condition. IMPRESSION: 1. Small rectal polyp, status post biopsy and removal. 2. Rule out microscopic colitis. 3. Diverticulosis. 4. Internal hemorrhoids. PLAN: The results of the biopsies will be checked. If this is a tubular adenoma, I would recommend a followup colonoscopy in 5 years. If it is only hyperplastic, I would recommend a followup colonoscopy in 10 years. She does report that she has achieved some improvement in her diarrhea on the cholestyramine and I did advise we will continue that as well. If things remain stable, she will see me otherwise on a p.r.n. basis. MD RAMIREZ Wiggins/DENISE / [id number]
== END 2025-01-06 11:02 | disposition home or self-care (01) ==
PROVIDERS: PCP Internal Medicine; Visit Provider Internal Medicine
PROC: 0DJD8ZZ Inspection of Lower Intestinal Tract, Via Natural or Artificial Opening Endoscopic (ICD-10-PCS; CPT 45378; principal; 2025-01-06 09:30)
DX: Z12.11 Encounter for screening for malignant neoplasm of colon (principal); D12.8 Benign neoplasm of rectum; K57.30 Diverticulosis of large intestine without perforation or abscess without bleeding; K64.8 Other hemorrhoids; K90.89 Other intestinal malabsorption; I10 Essential (primary) hypertension; E78.5 Hyperlipidemia, unspecified; J45.909 Unspecified asthma, uncomplicated; F41.8 Other specified anxiety disorders; N20.0 Calculus of kidney; G43.909 Migraine, unspecified, not intractable, without status migrainosus; Z85.42 Personal history of malignant neoplasm of other parts of uterus; Z85.43 Personal history of malignant neoplasm of ovary; Z90.710 Acquired absence of both cervix and uterus; Z79.1 Long term (current) use of non-steroidal anti-inflammatories (NSAID); Z79.899 Other long term (current) drug therapy; Z79.51 Long term (current) use of inhaled steroids; Z90.49 Acquired absence of other specified parts of digestive tract
CPT/HCPCS: 45380; 88305; J2003; J2704